=== PATIENT | female | born 1945 | race Caucasian/White ===

== ENCOUNTER → 2017-01-08 | Outpatient (CLI) | payer MEDICARE, OTHER ==
--- NOTE | 2017-01-09 07:48 | XR ---
EXAMINATION TYPE: XR chest 2V DATE OF EXAM: 01/08/2017 5:00 PM COMPARISON: 02/25/2016 TECHNIQUE: PA and lateral views submitted. HISTORY: Shortness of breath FINDINGS: The lungs are clear and there is no pneumothorax, pleural effusion, or focal pneumonia. Scoliotic c urvature of the spine. Atherosclerotic change aorta. Degenerative change of the spine. Hyperinflation suggests COPD. IMPRESSION: 1. No acute process.
== END | disposition home or self-care (01) ==
LOC: RADXRMAIN 16:45
PROVIDERS: ATTEND Family Medicine
DX: R06.02 Shortness of breath (principal); R05 Cough
CPT/HCPCS: 71020

== ENCOUNTER → 2017-01-08 | Outpatient (CLI) | payer MEDICARE, OTHER ==
--- NOTE | 2017-01-08 08:53 | US ---
EXAMINATION TYPE: US abdomen complete DATE OF EXAM: 01/08/2017 7:59 AM COMPARISON: NONE CLINICAL HISTORY: R14.0 Abdominal distention. EXAM MEASUREMENTS: Liver Length: 15.9 cm Gallbladder Wall: 0.2 cm CBD: 0.3 cm Spleen: 9.3 cm Right Kidney: 9.9 x 4.8 x 3.9 cm Left Kidney: 10.7 x 3.9 x 4.8 cm Pancreas: echogenic. Main pancreatic duct - 1.7 mm. Tail not well seen due to overlying bowel gas Liver: wnl Gallbladder: Focal lesion attached to wall, nonvascular = 0.3 x 0.4 cm Evidence for sonographic Fernández's sign: neg CHD: wnl Spleen: wnl Right Kidney: wnl Left Kidney: wnl Upper IVC: seen Abd Aorta: Distal outpouching = 2.7 x 3.2 x 4.5 cm The liver is homogenous. The intrahepatic portion of the IVC and proximal abdominal aorta are within normal limits. There is no evidence of cholelithiasis. Suspect small gallbladder polyp. Common vaishnavi e duct is unremarkable. The visualized portions of the pancreas are homogenous. The spleen is unrem arkable. Kidneys are symmetric and free of hydronephrosis. No renal lesions are seen. Infrarenal a bdominal aortic aneurysm. IMPRESSION: 1. Small gallbladder polyp. 2. Infrarenal abdominal aortic aneurysm.
== END ==
LOC: RADUSWWP 07:35
PROVIDERS: ATTEND Family Medicine
DX: K82.4 Cholesterolosis of gallbladder (principal); I71.4 Abdominal aortic aneurysm, without rupture
CPT/HCPCS: 71020; 76700

== ENCOUNTER → 2018-10-24 | Outpatient (CLI) | payer MEDICARE, OTHER ==
--- NOTE | 2018-10-27 09:52 | MM ---
Reason for exam: screening (asymptomatic). Last mammogram was performed 3 years and 6 months ago. History: Patient is postmenopausal. Benign stereotactic core biopsy of the left breast, July 30, 2003. Excisional biopsy of the right breast. Took estrogen for 10 months. Took progesterone for 10 months. Physical Findings: A clinical breast exam by your physician is recommended on an annual basis and results should be correlated with mammographic findings. MG 3D Screening Mammo W/Cad Bilateral CC and MLO view(s) were taken. Prior study comparison: April 08, 2015, bilateral MG screening mammo w CAD. August 24, 2013, bilateral digital screening mammo w/CAD. The breast tissue is heterogeneously dense. This may lower the sensitivity of mammography. Stable benign calcifications. There is no discrete abnormality. No significant changes when compared with prior studies. ASSESSMENT: Benign, BI-RAD 2 RECOMMENDATION: Routine screening mammogram of both breasts in 1 year.
== END | disposition home or self-care (01) ==
LOC: RADMAMWWP 09:35
PROVIDERS: ATTEND Nurse Practitioner Family
DX: Z12.31 Encounter for screening mammogram for malignant neoplasm of breast (principal)
CPT/HCPCS: 77063; 77067

== ENCOUNTER → 2019-11-17 | Outpatient (CLI) | payer MEDICARE, OTHER ==
--- NOTE | 2019-11-17 15:24 | BD ---
EXAMINATION TYPE: Axial Bone Density DATE OF EXAM: 11/17/2019 COMPARISON: 2014 CLINICAL HISTORY: Height: 61 inches Weight: 180 FRAX RISK QUESTIONS: Alcohol (3 or more units per day): no Family History (Parent hip fracture): no Glucocorticoids (More than 3mos): yes (Ex: prednisone, prednisolone, methylprednisolone, dexamethasone, and hydrocortisone). History of Fracture in Adulthood: unsure; several years ago injured lower ankle & wore "boot" for 4 w eeks...does not recall if there was a fracture Secondary Osteoporosis: 1. Type 1 Diabetes: no 2. Hyperthyroidism: no 3. Menopause before 45: no 4. Malnutrition: no 5. Chronic liver disease: no Rheumatoid Arthritis: no Current Tobacco Use: no RISK FACTORS HISTORY OF: Family History of Osteoporosis: not to knowledge of patient Active: yes Diet low in dairy products/other sources of calcium: no Postmenopausal woman: yes Take estrogen and/or progesterone medications: not now How long: less than one year Lost more than 2 inches in height since high school: not over 2 inches, states height was about 63 inches at one time Frequent falls: no Poor Health: no Hyperparathyroidism: no Adrenal Insufficiency: no MEDICATIONS: Prednisone or other steroids: yes How Long: at least since 2014 Thyroid Medications: no Osteoporosis Medications: no Additional Medications: aspirin ; Advair; .5 prednisone; calcium Additional History: stroke 2016; yes ago diagnosed with Polymyalgia Rheumatic but symptoms disappeare d after stroke; stopped smoking since last bone density study EXAM MEASUREMENTS: Bone mineral densitometry was performed using the [employer] System. Bone mineral density as measured about the Lumbar spine is: ----- L1-L4(G/cm2): 0.877 T Score Values are as follows: ----- L2: -3.2 ----- L3: -2.8 ----- L4: -2.1 ----- L1-L4: -2.5 Bone mineral density has: Decreased -5.3% since study of: 04/08/2015 Bone mineral density about the R hip (g/cm2): 0.727 Bone mineral density about the L hip (g/cm2): 0.746 T Score values are as follows: -----R Neck: -2-2 -----L Neck: -2.1 -----R Total: -2.2 -----L Total: -2.6 Bone mineral density has: Decreased -2.6 % since study of: 04/08/2015 IMPRESSION: Osteoporosis (T Score less than -2.5). There is increased fracture risk and therapy is usually indicated based on age. Re-Screen 1-2 years. NOTE: T-SCORE=SD OF THE YOUNG ADULT MEAN.
--- NOTE | 2019-11-18 11:24 | MM ---
Reason for exam: screening (asymptomatic). Last mammogram was performed 1 year and 1 month ago. History: Patient is postmenopausal. Family history of breast cancer in maternal aunt at age 40. Benign stereotactic core biopsy of the left breast, July 30, 2003. Excisional biopsy of the right breast. Took hormonal contraceptives for 3 years beginning at age 20. Took estrogen for 10 months. Took progesterone for 10 months. Physical Findings: A clinical breast exam by your physician is recommended on an annual basis and results should be correlated with mammographic findings. MG 3D Screening Mammo W/Cad Bilateral CC and MLO view(s) were taken. Prior study comparison: October 24, 2018, bilateral MG 3d screening mammo w/cad. April 08, 2015, bilateral MG screening mammo w CAD. The breast tissue is heterogeneously dense. This may lower the sensitivity of mammography. There are benign appearing round calcifications bilaterally. Previous mammotome biopsy in the left breast. There is no discrete abnormality. ASSESSMENT: Benign, BI-RAD 2 RECOMMENDATION: Routine screening mammogram of both breasts in 1 year.
== END | disposition home or self-care (01) ==
LOC: RADBDWWP 12:18
PROVIDERS: ATTEND Family Medicine
DX: Z12.31 Encounter for screening mammogram for malignant neoplasm of breast (principal); M81.0 Age-related osteoporosis without current pathological fracture
CPT/HCPCS: 77063; 77067; 77080

== ENCOUNTER → 2022-01-09 | Outpatient (CLI) | payer MEDICARE, OTHER ==
--- NOTE | 2022-01-09 22:24 | BD ---
EXAMINATION TYPE: Axial Bone Density DATE OF EXAM: 01/09/2022 COMPARISON: DEXA bone scan November 17, 2019 CLINICAL HISTORY: 76 years year old Female. ICD-10 CODE: M81.0 Height: 5 FT 1 IN Weight: 169 FRAX RISK QUESTIONS: Alcohol (3 or more units per day): NO Family History (Parent hip fracture): NO Glucocorticoids (More than 3mos): YES (Ex: prednisone, prednisolone, methylprednisolone, dexamethasone, and hydrocortisone). History of Fracture in Adulthood: NO Secondary Osteoporosis: 1. Type 1 Diabetes: NO 2. Hyperthyroidism: NO 3. Menopause before 45: NO 4. Malnutrition: NO 5. Chronic liver disease: NO Rheumatoid Arthritis: YES Current Tobacco Use: NO RISK FACTORS HISTORY OF: Surgery to Spine/Hip(right/left)/Wrist (right/left): NO Family History of Osteoporosis: NO Active: YES Diet low in dairy products/other sources of calcium: NO Postmenopausal woman: YES Take estrogen and/or progesterone medications: NO Lost more than 2 inches in height since high school: NO Frequent falls: NO Poor Health: GOOD Hyperparathyroidism: NO Adrenal Insufficiency: NO MEDICATIONS: Prednisone or other steroids:YES How Long: SINCE 2009 Additional Medications: PREDNISONE, OMEPRAZOLE, Additional History: EXAM MEASUREMENTS: Bone mineral densitometry was performed using the [employer] System. Bone mineral density as measured about the Lumbar spine is: ----- L1-L4(G/cm2): 0.907 T Score Values are as follows: ----- L1: -2.3 ----- L2: -3.1 ----- L3: -2.5 ----- L4: -1.5 ----- L1-L4: -2.3 Bone mineral density has: INCREASED 4.6 % since study of: 2019 Bone mineral density about the R hip (g/cm2): 0.683 Bone mineral density about the L hip (g/cm2): 0.696 T Score values are as follows: -----R Neck: -2.6 -----L Neck: -2.5 -----R Total: -2.3 -----L Total: -2.5 Bone mineral density has: INCREASED 0.9 % since study of: 2019 FRAX%s: The graph provided illustrates a 25.0 % chance for a major osteoporotic fx and a 9.1 % chance for the hips probability for fx in 10 years time. IMPRESSION: Osteoporosis (T Score less than -2.5). There is increased fracture risk and therapy is usually indicated based on age. Re-Screen 1-2 years. NOTE: T-SCORE=SD OF THE YOUNG ADULT MEAN.
--- NOTE | 2022-01-10 12:31 | MM ---
Reason for exam: screening (asymptomatic). Last mammogram was performed 2 years and 2 months ago. History: Patient is postmenopausal. Family history of breast cancer in maternal aunt at age 40. Benign stereotactic core biopsy of the left breast, July 30, 2003. Excisional biopsy of the right breast. Took hormonal contraceptives for 3 years beginning at age 20. Took estrogen for 10 months. Took progesterone for 10 months. Physical Findings: A clinical breast exam by your physician is recommended on an annual basis and results should be correlated with mammographic findings. MG 3D Screening Mammo W/Cad Bilateral CC and MLO view(s) were taken. Prior study comparison: November 17, 2019, bilateral MG 3d screening mammo w/cad. October 24, 2018, bilateral MG 3d screening mammo w/cad. There are scattered fibroglandular densities. No significant changes when compared with prior studies. ASSESSMENT: Benign, BI-RAD 2 RECOMMENDATION: Routine screening mammogram of both breasts in 1 year.
== END | disposition home or self-care (01) ==
LOC: RADMAMWWP 07:05
PROVIDERS: ATTEND Family Medicine
DX: Z12.31 Encounter for screening mammogram for malignant neoplasm of breast (principal); M81.0 Age-related osteoporosis without current pathological fracture; Z78.0 Asymptomatic menopausal state; Z80.3 Family history of malignant neoplasm of breast
CPT/HCPCS: 77063; 77067; 77080

== ENCOUNTER → 2023-07-25 | Outpatient (CLI) | payer MEDICARE, OTHER ==
--- NOTE | 2023-07-29 06:37 | MM ---
Reason for Exam: Screening (asymptomatic). Last mammogram was performed 1 year(s) and 7 month(s) ago. Patient History: Menarche at age 13. First Full-Term at age 26. Postmenopausal. Estrogen for 10 months. Progesterone for 10 months. Hormonal Contraceptives, starting at age 20 for 3 years. Excisional Biopsy on the Right side. 07/30/2003, Benign Stereotactic Core Biopsy on the left side. Maternal aunt had breast cancer, age 40. Risk Values: Megan 5 year model risk: 2.9%. NCI Lifetime model risk: 5.9%. Prior Study Comparison: 10/24/2018 Bilateral Screening Mammogram, [facility]. 11/17/2019 Bilateral Screening Mammogram, [facility]. 01/09/2022 Bilateral Screening Mammogram, [facility]. Tissue Density: There are scattered fibroglandular densities. Findings: Analyzed By CAD. Microclip left breast from prior biopsy. There is no suspicious group of microcalcifications or new suspicious mass in either breast. Overall Assessment: Negative, BI-RAD 1 Management: Screening Mammogram of both breasts in 1 year. . Patient should continue monthly self-breast exams. A clinical breast exam by your physician is recommended on an annual basis. This exam should not preclude additional follow-up of suspicious palpable abnormalities. Note on Megan scores and lifetime risk: 1. A Megan score greater than 3% is considered moderate risk. If this is the case, consider specialist referral to assess eligibility for a risk reducing agent. 2. If overall lifetime risk for the development of breast cancer is 20% or higher, the patient may qualify for future screening with alternating mammogram and breast MRI. Electronically signed and approved by: Anamaria Ashley M.D. Radiologist
== END | disposition home or self-care (01) ==
LOC: RADMAMWWP 14:34
PROVIDERS: ATTEND Internal Medicine
DX: Z12.31 Encounter for screening mammogram for malignant neoplasm of breast (principal); Z78.0 Asymptomatic menopausal state; Z80.3 Family history of malignant neoplasm of breast
CPT/HCPCS: 77063; 77067

== ENCOUNTER → 2024-04-21 | Outpatient (CLI) | payer MEDICARE, OTHER ==
--- NOTE | 2024-05-26 10:59 | CT ---
Patient Rolando Garcia A ID [id number] Order # Procedure CT CHEST W/ IV CONTRAST EXAMINATION TYPE: CT chest w con CT DLP: 376.9 mGycm, Automated exposure control for dose reduction was used. DATE OF EXAM: 04/29/2024 11:59 AM COMPARISON: THIS EXAM WAS READ DURING PACS DOWNTIME, NO PRIORS AVAILABLE. CLINICAL INDICATION: chest mass lump TECHNIQUE: Multiple axial images were obtained through the chest. Sagittal and coronal reformats were created for review. Contrast used: Isovue 300/100 ml. Oral contrast used: (None if empty) FINDINGS: LUNGS/ PLEURA: The lung parenchyma appears unremarkable. AIRWAY: Patent and unremarkable. HEART: Size within normal limits. Mitral valve annular cusp patient's. Aortic valve calcifications. L ipomatous hypertrophy of interatrial septum. MEDIASTINUM: No gross evidence of adenopathy. VASCULATURE: No aortic aneurysm. No filling defect to suggest pulmonary embolus. MUSCULOSKELETAL: No acute osseous abnormalities, There is a protuberant xiphoid process in the low mi dline. SOFT TISSUES/LYMPH NODES: Unremarkable. LOWER NECK: No significant findings. UPPER ABDOMEN: Right adrenal indeterminate nodule measuring 11 mm. Left adrenal indeterminate nodule measuring 20 x 11 mm a bilobed morphology. IMPRESSION: 1. No evidence for lump or mass. No palpable marker was placed. There is a protuberant xiphoid proce ss in the low midline. 2. Indeterminate right adrenal 11 mm nodule. 3. Mild coronary artery atherosclerosis. New line mild aortic valve calcifications.
== END | disposition home or self-care (01) ==
LOC: RADCTMAIN 14:54
PROVIDERS: ATTEND Internal Medicine
DX: I25.10 Atherosclerotic heart disease of native coronary artery without angina pectoris (principal); R22.2 Localized swelling, mass and lump, trunk
CPT/HCPCS: 82565; 84520; 71260; 36415; Q9967

== ENCOUNTER → 2024-04-21 | Outpatient (CLI) | payer MEDICARE, OTHER | END | disposition home or self-care (01) | LOC: LABPRL 03:00 | PROVIDERS: ATTEND Internal Medicine | DX: R22.2 Localized swelling, mass and lump, trunk (principal) | CPT/HCPCS: 82565; 84520 ==

== ENCOUNTER → 2024-08-17 | Outpatient (CLI) | payer MEDICARE, OTHER ==
--- NOTE | 2024-08-18 11:41 | MM ---
Reason for Exam: Screening (asymptomatic). Last mammogram was performed 1 year(s) and 1 month(s) ago. Patient History: Menarche at age 13. First Full-Term at age 26. Postmenopausal. Estrogen for 10 months. Progesterone for 10 months. Hormonal Contraceptives, starting at age 20 for 3 years. Excisional Biopsy on the Right side. 07/30/2003, Benign Stereotactic Core Biopsy on the left side. Maternal aunt had breast cancer, age 40. Risk Values: Megan 5 year model risk: 2.9%. NCI Lifetime model risk: 5.5%. Prior Study Comparison: 11/17/2019 Bilateral Screening Mammogram, [facility]. 01/09/2022 Bilateral Screening Mammogram, [facility]. 07/25/2023 Bilateral MG 3D screening mammo w/cad, [facility]. Tissue Density: There are scattered areas of fibroglandular density. Findings: Analyzed By CAD. Right breast: There is no suspicious group of microcalcifications or new suspicious mass. Left breast: There is no suspicious group of microcalcifications or new suspicious mass. Overall Assessment: Negative, BI-RAD 1 Management: Screening Mammogram of both breasts in [address] [facility] will attempt to contact patient to return for supplemental views and ultrasound if indicated. Patient should continue monthly self-breast exams. A clinical breast exam by your physician is recommended on an annual basis. This exam should not preclude additional follow-up of suspicious palpable abnormalities. Note on Megan scores and lifetime risk: 1. A Megan score greater than 3% is considered moderate risk. If this is the case, consider specialist referral to assess eligibility for a risk reducing agent. 2. If overall lifetime risk for the development of breast cancer is 20% or higher, the patient may qualify for future screening with alternating mammogram and breast MRI. [facility], , 08/18/2024 11:38 AM. Electronically signed and approved by: Maury Tavares DO
== END | disposition home or self-care (01) ==
LOC: RADMAMWWP 14:38
PROVIDERS: ATTEND Internal Medicine
DX: Z12.31 Encounter for screening mammogram for malignant neoplasm of breast (principal); Z78.0 Asymptomatic menopausal state; Z80.3 Family history of malignant neoplasm of breast; R92.323 Mammographic fibroglandular density, bilateral breasts
CPT/HCPCS: 77063; 77067

== ENCOUNTER → 2024-09-25 | Outpatient (CLI) | payer MEDICARE, OTHER ==
--- NOTE | 2024-09-25 13:04 | XR ---
EXAMINATION TYPE: XR chest 2V DATE OF EXAM: 09/25/2024 11:52 AM COMPARISON: 01/08/2017 CLINICAL INDICATION: Female, 78 years old with history of R05.9 COUGH, , TECHNIQUE: Frontal and lateral views FINDINGS: Heart normal size. Mild patchy bibasilar densities. Atherosclerotic calcifications throughout the aor ta. Upper and mid lungs are clear. No pleural effusion. IMPRESSION: Mild patchy bibasilar atelectasis versus subtle infiltrates. [facility], Workstation: [id number], 09/25/2024 1:02 PM
== END | disposition home or self-care (01) ==
LOC: RADXRMAIN 11:39
PROVIDERS: ATTEND Internal Medicine
DX: R05.9 Cough, unspecified (principal)
CPT/HCPCS: 71046

== ENCOUNTER → 2025-01-11 | Outpatient (CLI) | payer MEDICARE, OTHER ==
--- NOTE | 2025-01-11 15:45 | BD ---
EXAMINATION TYPE: Axial Bone Density DATE OF EXAM: 01/11/2025 CLINICAL HISTORY: 79 years old Female. ICD-10 CODE: M81.0 AGE-RELATED OSTEOPOROSIS W/O CURRENT PATHO LO , Additional History: Height: 5 ft 1 in Weight: 144 FRAX RISK QUESTIONS: Alcohol (3 or more units per day): no Family History (Parent hip fracture): no Glucocorticoids (More than 3mos): yes (Ex: prednisone, prednisolone, methylprednisolone, dexamethasone, and hydrocortisone). History of Fracture in Adulthood: no Secondary Osteoporosis: 1. Type 1 Diabetes:type 2 2. Hyperthyroidism: no 3. Menopause before 45: no 4. Malnutrition: no 5. Chronic liver disease: no Rheumatoid Arthritis: yes Current Tobacco Use: no RISK FACTORS HISTORY OF: Surgery to Spine/Hip(right/left)/Wrist (right/left): no MEDICATIONS: Thyroid Medications: none Osteoporosis Medications: none EXAM MEASUREMENTS: Bone mineral densitometry was performed using the [employer] System. Bone mineral density as measured about the Lumbar spine is: ----- L1-L4(G/cm2): 0.848 T Score Values are as follows: ----- L1: -2.7 ----- L2: -1.7 ----- L3: -3.1 ----- L4: -3.3 ----- L1-L4: -2.8 Z Score Values are as follows: ----- L1: -0.9 ----- L2: 0.1 ----- L3: -1.3 ----- L4: -1.5 ----- L1-L4: -1.0 Bone mineral density has: decreased 6.5 % since study of: 2021 Bone mineral density about the R hip (g/cm2): 0.678 Bone mineral density about the L hip (g/cm2): 0.639 T Score values are as follows: -----R Neck: -2.6 -----L Neck: -2.9 -----R Total: -2.9 -----L Total: -3.3 Z Score values are as follows: -----R Neck: -0.5 -----L Neck: -0.8 -----R Total: -1.0 -----L Total: -1.4 Bone mineral density has: decreased -12.8 % since study of: 2021 FRAX%s: The graph provided illustrates a 32.5 % chance for a major osteoporotic fx and a 14.5 % chanc e for the hips probability for fx in 10 years time. IMPRESSION: Osteoporosis (T Score less than -2.5). There is increased fracture risk and therapy is usually indicated based on age. Re-Screen 1-2 years. NOTE: T-SCORE=SD OF THE YOUNG ADULT MEAN. [facility], , 01/11/2025 3:43 PM
== END | disposition home or self-care (01) ==
LOC: RADBDWWP 13:57
PROVIDERS: ATTEND Internal Medicine
DX: M81.0 Age-related osteoporosis without current pathological fracture (principal)
CPT/HCPCS: 77080